=== PATIENT | female | born 1985 | race Caucasian/White ===

== ENCOUNTER → 2016-06-03 | Outpatient (CLI) | payer MEDICAID, OTHER ==
--- NOTE | 2016-06-03 14:57 | HHI.HP ---
History of Present Illness Service [facility] Primary Care Physician Yaakov Rodrigues of [facility] OB-SEE SUPERVISOR Admission Diagnosis Umbilical hernia Diagnoses: History of Present Illness 30 yo , 15 weeks on Tuesday, states noticed a "knot" above belly button about 2 weeks ago; In the past week, began to have some light dull tenderness, but her pain increased after she carried her kids (ages 3,5). The pain is localized above the umbilicus, non-radiating, improved by not doing strenous activity, worsened by lifting; denies cough, fevers/chills, previous infection or incision over area; she has N/V 3-4x's/day since , alternating soft/hard stools, Denies dysuria, Review of Systems Constitutional: COMPLAINS OF: Fatigue, Weight gain, DENIES: Diaphoretic episodes, Fever, Weight loss, Chills, Dizziness, Change in appetite, Night Sweats Endocrine: DENIES: Abnorml menstrual pattern, Heat/cold intolerance, Polydipsia , Polyuria, Polyphagia Eyes: DENIES: Blurred vision, Diplopia, Eye inflammation, Eye pain, Vision loss , Photosensitivity, Double Vision Ears, nose, mouth, throat: DENIES: Tinnitus, Hearing loss, Vertigo, Nasal discharge, Oral lesions, Throat pain, Hoarseness, Ear Pain, Running Nose, Epistaxis, Sinus Pain, Toothache, Odynophagia Respiratory: DENIES: Apneas, Cough, Snoring, Wheezing, Hemoptysis, Sputum production, Shortness of breath Cardiovascular: DENIES: Chest pain, Palpitations, Syncope, Dyspnea on Exertion , PND, Lower Extremity Edema, Orthopnea, Claudication Gastrointestinal: COMPLAINS OF: Abdominal pain, Bloody stools, Constipation, Nausea, Vomiting, DENIES: Black stools, Diarrhea, Difficulty Swallowing, Anorexia Genitourinary: DENIES: Abnormal vaginal bleeding, Dysmenorrhea, Dyspareunia, Sexual dysfunction, Urinary frequency, Urinary incontinence, Urgency, Hematuria , Dysuria, Nocturia, Vaginal discharge Musculoskeletal: DENIES: Joint pain, Muscle aches, Stiffness, Joint Swelling, Back pain, Neck pain Integumentary: DENIES: Abnormal pigmentation, Pruritus, Rash, Nail changes, Breast masses, Breast skin changes, Nipple discharge Hematologic/lymphatic: DENIES: Bruising, Lymphadenopathy Immunologic/allergic: DENIES: Eczema, Urticaria Neurologic: DENIES: Abnormal gait, Headache, Localized weakness, Paresthesias, Seizures, Speech Problems, Tremor, Poor Balance Psychiatric: DENIES: Anxiety, Confusion, Mood changes, Depression, Hallucinations, Agitation, Suicidal Ideation, Homicidal Ideation, Delusions Past Family Social History Allergies: Coded Allergies: Codeine (Verified Allergy, Unknown, 09/11/14) Past Medical History Right ectopic R hand contusion 08/2014 Constipation Past Surgical History Vaginal delivery x 2 Reported Medications Pre- vitamins Social History Neg for Etoh or tobacco Physical Exam Vital Signs BP 137/67 HR 102 T 98 Wt. 89.6 K Ht: 5'4" BMI 33.9 Physical Exam GENERAL: This is a well-nourished, well-developed patient, in no apparent distress. SKIN: No rashes, ecchymoses or lesions. Cool and dry. HEAD: Atraumatic. Normocephalic. No temporal or scalp tenderness. EYES: Pupils equal round and reactive. Extraocular motions intact. No scleral icterus. No injection or drainage. ENT: Nose without bleeding, purulent drainage or septal hematoma. Throat without erythema, tonsillar hypertrophy or exudate. Uvula midline. Airway patent. NECK: Trachea midline. No JVD or lymphadenopathy. Supple, nontender, no meningeal signs. CARDIOVASCULAR: Regular rate and rhythm without murmurs, gallops, or rubs. RESPIRATORY: Clear to auscultation. Breath sounds equal bilaterally. No wheezes , rales, or rhonchi. GASTROINTESTINAL: Abdomen soft, non-tender, protuberant. No hepato-splenomegaly , or palpable masses. No guarding.Small subcentimetric midline defect approx 2cm cephalad to umbilicus, NT MUSCULOSKELETAL: Extremities without clubbing, cyanosis, or edema. No joint tenderness, effusion, or edema noted. No calf tenderness. Negative Homans sign bilaterally. NEUROLOGICAL: Awake and alert. Cranial nerves II through XII intact. Motor and sensory grossly within normal limits. Five out of 5 muscle strength in all muscle groups. Normal speech. Assessment and Plan Assessment and Plan Small ed-umbilical hernia, most likely congenital; Likely had a temporary episode of incarceration with subsequent release; Discussed risks/benefits of, as well as options for, treatment, including observation; conservative non- operative approach; or surgery (lap vs open); Discussed risks of incarceration, bowel obstruction, infection, and emergent surgery. I will be consulting with OB -SEE SUPERVISOR regarding issue of repair before or after , and will inform ms. Ricketts of our decision. She is going into her 2nd trimester, and is thus the safest time period should an operative procedure be elected. Asim Haynes MD Jun 03, 2016 14:57
--- NOTE | 2016-06-08 10:25 | HHI.PR ---
Assessment and Plan Assessment and Plan Follow up note from 06/03/16 office visit; Literature reviewed and discussed case with Dr. Barnes; Discussed with patient regarding best practices and evidence to support waiting until after the to address the umbilical hernia; Indications for surgical repair during the would be if incarcerated and/or strangulated; Hernia may even resolve post-; Provided signs and symptoms to watch for incarceration; Ms. Ricketts she feels much better since she stopped lifting at home and work; I advised her to ask Dr. Rodrigues for a script for an abdominal support/ corset-type of binder to ease her discomfort, as well as a note stating her activity and work limitations during the . 6-8 weeks after her delivery, we can address the hernia again. She understands and agrees. Asim Haynes MD Jun 08, 2016 10:25
== END ==
LOC: CGSR 12:56
PROVIDERS: ATTEND Surgery
DX: K42.9 Umbilical hernia without obstruction or gangrene (principal); O26.92 Pregnancy related conditions, unspecified, second trimester; Z3A.15 15 weeks gestation of pregnancy
CPT/HCPCS: 99201; G0463